=== PATIENT | male | born 1970 | race Caucasian/White ===

== ENCOUNTER 2018-07-12 11:47 | Emergency (ER) | payer OTHER ==
[~2018-07-12] VITALS: Ht 167.6 cm; Wt 93.0 kg
[2018-07-12 11:56] VITALS: BP 139/91
--- NOTE | 2018-07-12 12:01 | NUR ---
EKG DONE IN TRIAGE, PER DR ANAYELI FUNES TO WAIT IN LOBBY.
--- NOTE | 2018-07-12 12:42 | NUR ---
PT AMBULATES TO BED 9
--- NOTE | 2018-07-12 12:45 | NUR ---
PATIENT PRESENTS TO ED FOR INHALATION OF DIESEL FROM WORK TRUCK, PALPITATIONS, SOB. RESP ARE EVEN AND UNLABORED, SPEAKING IN FULL CLR SENTENCES. DENIES N/V/D; SKIN IS PINK/WARM/DRY; AAOX4 WITH EVEN AND STEADY GAIT; LUNGS CLEAR BL; HR EVEN AND REGULAR; PT DENIES ANY FEVER; PATIENT STATES PAIN OF 5/10 AT THIS TIME; VSS; PATIENT POSITIONED FOR COMFORT; HOB ELEVATED; BEDRAILS UP X1; BED DOWN. ER MD MADE AWARE OF PT STATUS.
[2018-07-12 14:25] VITALS: BP 139/91
--- NOTE | 2018-07-12 14:25 | NUR ---
Patient discharged with v/s stable. Written and verbal after care instructions given and explained. Patient verbalized understanding. Ambulatory with steady gait. All questions addressed prior to discharge. Advised to follow up with PMD.
== END 2018-07-12 14:25 | disposition home or self-care (01) ==
LOC: MED 11:47
DX: T52.0X1A Toxic effect of petroleum products, accidental (unintentional), initial encounter (principal); J69.8 Pneumonitis due to inhalation of other solids and liquids; R00.2 Palpitations; J45.909 Unspecified asthma, uncomplicated; Y92.89 Other specified places as the place of occurrence of the external cause
CPT/HCPCS: 93005; 99283